=== PATIENT | male | born 1950 | race Caucasian/White ===

== ENCOUNTER 2018-05-15 03:09 | Emergency (ER) | payer OTHER ==
[2018-05-15] MEDS ORDERED: predniSONE 20 MG TABLET (UD) PO ONE (03:24)
--- NOTE | 2018-05-15 03:24 | PDOC ---
Attending Attestation - Resident Resident Name: Donal Jay - ED Attending Attestation I have performed the following: I have examined & evaluated the patient, The case was reviewed & discussed with the resident, I agree w/resident's findings & plan - HPI HPI: 05/15/18 03:24 Pt comes with a left sided bells palsy - Physicial Exam PE: 05/15/18 06:00 Agree with resident exam - Medical Decision Making 05/15/18 04:36 Patient Name: TIFFANY GAMBINO THIS IS A PRELIMINARY REPORT FROM [facility] DATE OF SERVICE: 2018-05-15 03:33:59 IMAGES: 170 EXAM: CT BRAIN WITHOUT INTRAVENOUS CONTRAST. HISTORY: Facial weakness. COMPARISON: None. FINDINGS: 1. There is no intracranial bleed, extra axial fluid collection, mass effect, midline shift, hydrocephalus, acute territorial infarct or depressed skull fracture evident. IMPRESSION: No acute intracranial abnormality demonstrated
[2018-05-15 03:26] VITALS: BP 168/86; PULSE 71; TEMP 97.7; BMI 29.3
--- NOTE | 2018-05-15 03:41 | PDOC ---
History of Present Illness - General Chief Complaint: Facial Droop Stated Complaint: FACIAL DROOP Time Seen by Provider: 05/15/18 03:24 - History of Present Illness Initial Comments: 05/15/18 03:32 67 yo M with h/o CAD/DC, HTN, who p/w left sided facial weakness. Patient reports 2 days of progressive left sided facial weakness, inability to close left sided eye, and left sided facial droop. No identifiable triggers or alleviators. Also endorses left sided ear pain, dull, not alleviated with H2O2. Patient denies taste disturbances, ALEXIS, vision change, tinnitus, hearing loss, N/ V, F,C, CP, SOB, urinary complaints, abdominal pain, diarrhea, constipation, lightheadedness, sensory changes. PMHx: as noted above. Denies h/o CVA/TIA. ROS: as noted SHx: Denies IVDA Allergies: NKDA Past History - Past Medical History Allergies/Adverse Reactions: Allergies Allergy/AdvReac Type Severity Reaction Status Date / Time No Known Allergies Allergy Verified 01/19/16 12:17 Home Medications: Ambulatory Orders Aspirin [Aspirin EC] 81 mg PO DAILY #0 tab.chew 07/02/11 Atorvastatin Ca [Lipitor] 10 mg PO HS #0 tablet 07/02/11 Metoprolol Tartrate [Lopressor -] 25 mg PO BID #0 tab 07/02/11 Meclizine HCl [Antivert -] 25 mg PO TID PRN #21 tablet 04/22/13 Ramipril 10 mg PO DAILY 01/19/16 Glipizide [Glucotrol -] 2.5 mg PO BID@0700,1630 #60 tablet 01/20/16 metFORMIN HCL [Glucophage -] 500 mg PO BID@0700,1630 #60 tablet 01/20/16 Eye Patch [Eye Pad] 1 each MC DAILY #1 pad 05/15/18 Prednisone [Deltasone] See Taper PO DAILY #16 tablet 05/15/18 Tetrahydrz/Dext 70/Peg 400/Pvp [Eye Drops] 15 ml OP TID #1 drops 05/15/18 Valacyclovir HCl [Valtrex -] 1,000 mg PO TID #21 tablet MDD 3 tab 05/15/18 Cardiac Disorders: Yes (DC) - Surgical History Cardiac Surgery: Yes (BYPASS) - Immunization History Immunization Up to Date: Yes - Suicide/Smoking/Psychosocial Hx Smoking Status: No Smoking History: Never smoked Have you smoked in the past 12 months: No Number of Cigarettes Smoked Daily: 40 If you are a former smoker, when did you quit?: 2009 Information on smoking cessation initiated: No Hx Alcohol Use: No Drug/Substance Use Hx: No Substance Use Type: None Hx Substance Use Treatment: No Review of Systems - Review of Systems Comments:: 05/15/18 03:42 GENERAL/CONSTITUTIONAL: No fever or chills. No weakness. HEAD, EYES, EARS, NOSE AND THROAT: + Left facial weakness. No change in vision. No ear pain or discharge. No sore throat. CARDIOVASCULAR: No chest pain or shortness of breath RESPIRATORY: No cough, wheezing, or hemoptysis. GASTROINTESTINAL: No nausea, vomiting, diarrhea or constipation. GENITOURINARY: No dysuria, frequency, or change in urination. MUSCULOSKELETAL: No joint or muscle swelling or pain. No neck or back pain. SKIN: No rash NEUROLOGIC:+ Left sided facial weakness. No headache, vertigo, loss of consciousness, or change in sensation. ENDOCRINE: No increased thirst. No abnormal weight change HEMATOLOGIC/LYMPHATIC: No anemia, easy bleeding, or history of blood clots. ALLERGIC/IMMUNOLOGIC: No hives or skin allergy. *Physical Exam - Vital Signs Last Vital Signs Temp Pulse Resp BP Pulse Ox 97.7 F 71 18 168/86 96 05/15/18 03:22 05/15/18 03:22 05/15/18 03:22 05/15/18 03:22 05/15/18 03:22 - Physical Exam Comments: 05/15/18 03:43 GENERAL: Awake, alert, and fully oriented, in no acute distress HEAD: No signs of trauma, normocephalic, atraumatic EYES: Absent left sided forehead wrinkling, inability to close left eyelid, drooping at angle of left sided mouth/lateral commisure. PERRLA, EOMI, sclera anicteric, conjunctiva clear ENT: Auricles normal inspection, hearing grossly normal, nares patent, oropharynx clear without exudates. Moist mucosa NECK: Normal ROM, supple, no lymphadenopathy, JVD, or masses LUNGS: No distress, speaks full sentences, clear to auscultation bilaterally HEART: Regular rate and rhythm, normal S1 and S2, no murmurs, rubs or gallops, peripheral pulses normal and equal bilaterally. EXTREMITIES : Normal inspection, Normal range of motion, no edema. No clubbing or cyanosis. NEUROLOGICAL: Absent left sided forehead wrinkling, inability to close left eyelid, drooping at angle of left sided mouth/lateral commisure. Cranial nerves II through XII grossly intact. Normal speech, normal gait, no focal sensorimotor deficits SKIN: Warm, Dry, normal turgor, no rashes or lesions noted Moderate Sedation - Procedure Monitoring Vital Signs: Procedure Monitoring Vital Signs Temperature 97.7 F 05/15/18 03:22 Pulse Rate 71 05/15/18 03:22 Respiratory Rate 18 05/15/18 03:22 Blood Pressure 168/86 05/15/18 03:22 O2 Sat by Pulse Oximetry (%) 96 05/15/18 03:22 ED Treatment Course - RADIOLOGY Radiology Studies Ordered: Category Date Time Status HEAD CT WITHOUT CONTRAST [CT] Stat CT Scan 05/15/18 03:31 Ordered - Medications Given in the ED: ED Medications Discontinued Medications Generic Name Dose Route Start Last Admin Trade Name Freq PRN Reason Stop Dose Admin Prednisone 60 mg 05/15/18 03:24 05/15/18 03:56 Deltasone - PO 05/15/18 03:25 60 mg ONCE ONE Administration Medical Decision Making - Medical Decision Making 05/15/18 03:35 67 yo M with h/o CAD/DC, HTN, who p/w left sided facial weakness. BP 168/86, vitals otherwise wnl, AF, A&Ox3. Absent left sided forehead wrinkling, inability to close left eyelid, drooping at angle of left sided mouth/lateral commisure. Symptoms likely 2/2 bells palsy. No other focal or neuro deficits to suggest CVA/TIA. Differential also includes Rishabh wing, trigeminal neuralgia, tick paralysis. Will provide symptom management, CTH imaging, and reassess. ED Course: Prednisone, Valacyclovir, eye drops, sent to pharmacy Patient understands prognosis and need to f/u with optho, and neurology. 05/15/18 03:59 CTH: Unremarkable Patient stable for d/c with return precautions. 05/15/18 03:59 *DC/Admit/Observation/Transfer Diagnosis at time of Disposition: Left-sided Pascal's palsy - Discharge Dispostion Disposition: HOME Condition at time of disposition: Stable Decision to Admit order: No - Prescriptions Prescriptions: Eye Patch [Eye Pad] 1 each MC DAILY #1 pad Prednisone [Deltasone] See Taper PO DAILY #16 tablet Tetrahydrz/Dext 70/Peg 400/Pvp [Eye Drops] 15 ml OP TID #1 drops Valacyclovir HCl [Valtrex -] 1,000 mg PO TID #21 tablet MDD 3 tab - Referrals Referrals: Jaime Salamanca PA [Primary Care Provider] - Edinson Sanchez MD [Staff Physician] - Godwin Grimm MD [Staff Physician] - - Patient Instructions Printed Discharge Instructions: DI for Pascal's Palsy Additional Instructions: Please return to the emergency department with any new or worsening symptoms or concerns. Please follow up with your primary care physician within 72 hours. Please take prednisone, valacylovir, eye drops as prescribed. Please follow up with neurology and ophthalmology within 72 hours. - Post Discharge Activity - Attestations Physician Attestion: 05/15/18 03:46 I attest to the information provided in this note. NIH Stroke Scale - Last Known Well Date/Time & Onset Date Last Known Well: 05/13/18 Time Last Known Well: 09:00 - Initial Evaluation Level of consciousness: Alert Ask patient the month and their age: Answers both correctly Ask patient to open & close eyes; make fist and let go: Obeys both correctly Best gaze (horizontal eye movement): Normal Visual field testing: No visual field loss Facial paresis (Show teeth/raise eyebrows/close eyes tight): Complete paralysis of one or both sides (Upper and lower face) Motor Function: Left Arm: Normal Motor Function: Right Arm: Normal (extends arm 90 (or 45) degrees for 10 seconds without drift Motor Function: Left Leg: Normal (extends leg 30 degrees for 5 seconds without drift) Motor Function: Right Leg: Normal (extends leg 30 degrees for 5 seconds without drift) Limb Ataxia: No ataxia Sensory(Use pinprick test arms,legs,trunk,face/side to side): Normal Best language (Describe picture, name items, read sentences): No Aphasia Dysarthria (read several words): Normal articulation Extinction and Inattention: No abnormality - Total Score NIH Stroke Scale Score: 3 tPA Exclusion checklist 3-4.5h - Time Elapsed Date last known well: 05/13/18 Time last known well: 09:00 Elaspsed time: 1 Day(s) and 18 Hour(s) and 59 Minutes - Thrombolytic Therapy Candidate Is patient eligible for thrombolytic therapy: No - Exclusion Criteria 3-4.5 hr SBP greater than 185 or DBP greater than 110mmHg despite tx: No Recent IC/spinal surgery,head trauma or stroke<3mos.: No Hx IC hemorrhage, IC neoplasm, AV malformation or aneurysm: No Active internal bleeding: No Blding diathesis(low plt ct, inc PTT,INR>1.7 or use of NOAC): No Symptoms suggest subarachnoid hemorrhage: No CT demonstrates multilobar infarct(>1/3 cerebral hemiphere): No Arterial puncture at noncompressible site in previous 7 days: No Blood glucose concentration less than 50mg/dL (2.7mmol/L): No - Relative Exclusion Criteria 3-4.5 hr Life expectancy <1 yr or severe co-morbid illness: No : No Patient/family refused: No Rapid improvement: No Stroke severity too mild: Yes Recent acute DC (w/in previous 3 months): No Seizure at onset with postictal residual neuro impairments: No Major surgery or serious trauma w/in previous 14 days: No Recent GI or hemorrhage (w/in previous 21 days): No - Add'l Relative Exclusion 3-4.5 hr Age > 80: No Hx of both diabetes AND prior ischemic stroke: No Taking an oral anticoagulant regardless of INR: No NIHSS >25: No - Ineligibility reason(s) Reasons No tPA given: Outside of window - delayed arrival, See reason(s) noted above
[2018-05-15] MEDS ORDERED: predniSONE 20 MG TABLET (UD) ONE (03:57)
== END 2018-05-15 04:40 | disposition home or self-care (01) ==
LOC: JER 03:09
DX: G51.0 Bell's palsy (principal); I25.10 Atherosclerotic heart disease of native coronary artery without angina pectoris; I10 Essential (primary) hypertension; Z95.1 Presence of aortocoronary bypass graft; I25.2 Old myocardial infarction
CPT/HCPCS: 70450-TC; 99283-25

== ENCOUNTER 2018-06-05 03:59 | Emergency (ER) | payer OTHER ==
[2018-06-05] MEDS ORDERED: RAMIPRIL 5 MG CAPSULE (FP) PO ONE (04:14)
[2018-06-05] MEDS ORDERED: metoPROLOL SUCCINATE 25 MG TAB.SR.24H (FP) PO ONE (04:14)
[2018-06-05] MEDS ORDERED: ATORVASTATIN CA 10 MG TABLET (FP) PO ONE (04:15)
[2018-06-05] MEDS ORDERED: glipiZIDE-XL 2.5 MG TAB.ER.24 PO ONE (04:15)
[2018-06-05] MEDS ORDERED: metFORMIN HCL 500 MG TABLET (FP) PO ONE (04:15)
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
[2018-06-05] MEDS ORDERED: METOPROLOL TARTRATE 25 MG TABLET (FP) ONE (04:20)
[2018-06-05] MEDS ORDERED: metFORMIN HCL 500 MG TABLET (FP) ONE (04:20)
[2018-06-05] MEDS ORDERED: glipiZIDE 5 MG TABLET (FP) ONE (04:20)
[2018-06-05 04:21] VITALS: BP 139/92; PULSE 99; TEMP 98; BMI 29.5
[2018-06-05] MEDS ORDERED: ATORVASTATIN CA 10 MG TABLET (FP) ONE (04:21)
[2018-06-05] MEDS ORDERED: RAMIPRIL 5 MG CAPSULE (FP) ONE (04:21)
--- NOTE | 2018-06-05 10:35 | EKG ---
Test Reason : Blood Pressure : / mmHG Vent. Rate : 096 BPM Atrial Rate : 096 BPM P-R Int : 144 ms QRS Dur : 102 ms QT Int : 342 ms P-R-T Axes : 029 -09 049 degrees QTc Int : 432 ms NORMAL SINUS RHYTHM POSSIBLE LEFT ATRIAL ENLARGEMENT BORDERLINE ECG WHEN COMPARED WITH ECG OF 19-JAN-2016 15:14, NO SIGNIFICANT CHANGE WAS FOUND Confirmed by RICCI VELÁZQUEZ MD ([id number]) on 06/05/2018 10:34:57 AM Referred By: Confirmed By:RICCI VELÁZQUEZ MD
== END 2018-06-05 05:05 | disposition home or self-care (01) ==
LOC: JER 03:59
DX: Z04.1 Encounter for examination and observation following transport accident (principal); V47.5XXA Car driver injured in collision with fixed or stationary object in traffic accident, initial encounter; Y92.414 Local residential or business street as the place of occurrence of the external cause; Y93.89 Activity, other specified; Y99.8 Other external cause status; I25.810 Atherosclerosis of coronary artery bypass graft(s) without angina pectoris; I10 Essential (primary) hypertension; I25.2 Old myocardial infarction; E11.9 Type 2 diabetes mellitus without complications; Z79.84 Long term (current) use of oral hypoglycemic drugs; E78.5 Hyperlipidemia, unspecified
CPT/HCPCS: 93005; 93010; 99282-25

== ENCOUNTER 2021-05-09 00:26 | Emergency (ER) | payer OTHER ==
[2021-05-09 00:35] VITALS: TEMP 98.8; BMI 26.6
[2021-05-09] MEDS ORDERED: ACETAMINOPHEN 500 MG TABLET (FP) PO ONE (01:24)
[2021-05-09 01:48] LABS: BASO % 0.6 % (0-2.0); EOS % 0.6 % (0-4.5); HEMATOCRIT 44.6 % (35.4-49); HEMOGLOBIN 15.4 GM/dL (11.7-16.9); LYMPH % 9.2 % (8-40); MCH 29.3 pg (25.7-33.7); MCHC 34.6 g/dl (32.0-35.9); MEAN CELL VOLUME 84.6 fl (80-96); MEAN PLT VOLUME 8.9 fl (7.5-11.1); MONO % 4.7 % (3.8-10.2); NEUT % 84.9 % (42.8-82.8); PLATELET COUNT 138 10^3/uL (134-434); RBC 5.27 M/mm3 (4.00-5.60); RDW 14.7 % (11.9-15.9); WHITE BLOOD COUNT 9.4 K/mm3 (4.0-10.0)
[2021-05-09] MEDS ORDERED: ACETAMINOPHEN 325 MG TABLET (FP) ONE (01:56)
[2021-05-09 02:07] LABS: CHLORIDE 109 mmol/L (98-107); SODIUM 142 mmol/L (136-145)
[2021-05-09 02:09] LABS: CALCIUM 8.9 mg/dL (8.5-10.1)
[2021-05-09 02:10] LABS: ANION GAP 5 MMOL/L (8-16); BLOOD UREA NITROGEN 13.8 mg/dL (7-18); CO2 28 mmol/L (21-32); GLUCOSE,RANDOM 175 mg/dL (74-106)
[2021-05-09 02:12] LABS: CREATININE 0.8 mg/dL (0.55-1.3); SGOT/AST 21 U/L (15-37); SGPT/ALT 32 U/L (13-61)
[2021-05-09 02:15] LABS: BILIRUBIN,TOTAL 0.8 mg/dL (0.2-1); TOT PROT 7.3 g/dl (6.4-8.2)
[2021-05-09 02:16] LABS: ALK PHOS 50 U/L (45-117)
[2021-05-09 02:38] LABS: INR 1.19 (0.83-1.09); PROTHROMBIN TIME (PATIENT) 13.7 SEC (9.7-13.0)
[2021-05-09] MEDS ORDERED: ONDANSETRON 4 MG/2 ML VIAL ONE (03:25)
[2021-05-09] MEDS ORDERED: ONDANSETRON 4 MG/2 ML VIAL IVPB ONE (03:28)
[2021-05-09] MEDS ORDERED: NICARDIPINE 25 MG in DEXTROSE 5%-WATER - 240 ML IVPB SCH (03:30)
[2021-05-09] MEDS ORDERED: niCARdipine HCL 25 MG/10 ML AMPUL IVPB ONE (03:44)
[2021-05-09 04:33] VITALS: BP 157/109; PULSE 117
[2021-05-09] MEDS ORDERED: METOCLOPRAMIDE HCL INJECTION 10 MG/2 ML VIAL IVPUSH ONE (04:40)
[2021-05-09] MEDS ORDERED: METOCLOPRAMIDE HCL INJECTION 10 MG/2 ML VIAL ONE (04:41)
[2021-05-09] MEDS ORDERED: morphine SULFATE 4 MG/ML VIAL ONE (05:07)
[2021-05-09] MEDS ORDERED: morphine CARPU-JECT 2 MG/1 ML DISP.SYRIN IVPUSH ONE (05:14)
[2021-05-09 17:29] LABS: MAGNESIUM 1.6 mg/dL (1.8-2.4)
== END 2021-05-09 05:26 | disposition short-term general hospital (02) ==
LOC: JER 00:26
PROC: 3E033GC Introduction of Other Therapeutic Substance into Peripheral Vein, Percutaneous Approach (ICD-10-PCS; principal; 2021-05-09)
PROC: 3E033NZ Introduction of Analgesics, Hypnotics, Sedatives into Peripheral Vein, Percutaneous Approach (ICD-10-PCS; 2021-05-09)
PROC: 3E033GC Introduction of Other Therapeutic Substance into Peripheral Vein, Percutaneous Approach (ICD-10-PCS; 2021-05-09)
PROC: 3E033GC Introduction of Other Therapeutic Substance into Peripheral Vein, Percutaneous Approach (ICD-10-PCS; 2021-05-09)
DX: S06.6X0A Traumatic subarachnoid hemorrhage without loss of consciousness, initial encounter (principal); R55 Syncope and collapse; W19.XXXA Unspecified fall, initial encounter
CPT/HCPCS: 36415; 70450-TC; 70496-TC; 70498-TC; 71045-TC-FY; 72125-TC; 80053; 80307; 82550; 83735; 84484; 85025; 85610; 93005; 93010; 96374; 96375; 99285-25; C9803; Q9967; U0003; U0005

== ENCOUNTER 2021-12-03 15:50 | Inpatient (IN) | payer OTHER ==
[2021-12-03] MEDS ORDERED: MECLIZINE HCL 25 MG TABLET (FP) PO ONE (18:17)
[2021-12-03] MEDS ORDERED: MECLIZINE HCL 25 MG TABLET (FP) ONE (18:46)
[2021-12-03 19:06] LABS: HEMATOCRIT 45.3 % (35.4-49); HEMOGLOBIN 15.4 GM/dL (11.7-16.9); MCH 28.6 pg (25.7-33.7); MEAN CELL VOLUME 84.1 fl (80-96); MEAN PLT VOLUME 8.9 fl (7.5-11.1); PLATELET COUNT 174 10^3/uL (134-434); RBC 5.38 M/mm3 (4.00-5.60); RDW 15.7 % (11.9-15.9); WHITE BLOOD COUNT 6.1 K/mm3 (4.0-10.0)
[2021-12-03 19:15] LABS: INR 1.11 (0.83-1.09); PROTHROMBIN TIME (PATIENT) 12.8 SEC (9.7-13.0)
[2021-12-03 19:40] LABS: CALCIUM 9.3 mg/dL (8.5-10.1)
[2021-12-03 19:41] LABS: ALBUMIN 4.1 g/dl (3.4-5.0); BLOOD UREA NITROGEN 17.9 mg/dL (7-18)
[2021-12-03 19:42] LABS: MAGNESIUM 2.1 mg/dL (1.8-2.4)
[2021-12-03 19:44] LABS: BILIRUBIN,TOTAL 0.6 mg/dL (0.2-1); CREATININE 0.9 mg/dL (0.55-1.3); TOT PROT 7.2 g/dl (6.4-8.2)
[2021-12-04 01:37] LABS: URINE APPEARANCE CLOUDY; URINE BILIRUBIN NEGATIVE (NEGATIVE); URINE COLOR YELLOW; URINE GLUCOSE (UA) 2+ (NEGATIVE); URINE KETONE NEGATIVE (NEGATIVE); URINE LEUK ESTERASE NEGATIVE (NEGATIVE); URINE NITRITE NEGATIVE (NEGATIVE); URINE PROTEIN NEGATIVE (NEGATIVE)
[2021-12-04] MEDS: ACETAMINOPHEN 325 MG TABLET (FP) PO PRN ×2 (02:23→12:57)
[2021-12-04 03:13] VITALS: RESP 20; BMI 25.2
[2021-12-04] MEDS: INSULIN SLIDING SCALE (NOVOLOG) 1 VIAL SQ SCH ×4 (06:55→23:17)
[2021-12-04 09:24] LABS: BASO % 0.6 % (0-2.0); EOS % 2.2 % (0-4.5); HEMATOCRIT 46.7 % (35.4-49); HEMOGLOBIN 15.8 GM/dL (11.7-16.9); LYMPH % 22.5 % (8-40); MCH 28.5 pg (25.7-33.7); MCHC 33.7 g/dl (32.0-35.9); MEAN CELL VOLUME 84.4 fl (80-96); MONO % 7.9 % (3.8-10.2); NEUT % 66.8 % (42.8-82.8); PLATELET COUNT 178 10^3/uL (134-434); RBC 5.53 M/mm3 (4.00-5.60); RDW 15.7 % (11.9-15.9)
[2021-12-04 10:05] LABS: ALBUMIN 3.9 g/dl (3.4-5.0); BLOOD UREA NITROGEN 15.5 mg/dL (7-18)
[2021-12-04 10:06] LABS: BILIRUBIN,TOTAL 0.8 mg/dL (0.2-1); CREATININE 0.8 mg/dL (0.55-1.3)
[2021-12-04] MEDS: RAMIPRIL 5 MG CAPSULE PO SCH (11:12)
[2021-12-04] MEDS ORDERED: ATORVASTATIN CA 20 MG TABLET (FP) PO SCH (22:00)
[2021-12-04] MEDS ORDERED: INSULIN (NOVOLOG) ASPART 100 UNITS/ML 10ML VIAL ONE (22:05)
[2021-12-05] MEDS: INSULIN SLIDING SCALE (NOVOLOG) 1 VIAL SQ SCH (06:24)
[2021-12-05] MEDS: ACETAMINOPHEN 325 MG TABLET (FP) PO PRN (06:29)
[2021-12-05 07:52] VITALS: BP 124/70; PULSE 79; TEMP 97.6
[2021-12-05] MEDS ORDERED: levETIRAcetam 500 MG TABLET (FP) PO ONE (08:55)
[2021-12-05] MEDS: RAMIPRIL 5 MG CAPSULE PO SCH (09:16)
[2021-12-05] MEDS ORDERED: FENOFIBRIC ACID 135 MG CAP PO SCH (10:00)
[2021-12-05 10:45] LABS: BASO % 0.7 % (0-2.0); EOS % 2.7 % (0-4.5); HEMATOCRIT 48.7 % (35.4-49); HEMOGLOBIN 16.2 GM/dL (11.7-16.9); MCH 28.5 pg (25.7-33.7); MCHC 33.2 g/dl (32.0-35.9); MEAN CELL VOLUME 85.8 fl (80-96); MEAN PLT VOLUME 8.9 fl (7.5-11.1); MONO % 9.5 % (3.8-10.2); NEUT % 61.1 % (42.8-82.8); PLATELET COUNT 177 10^3/uL (134-434); RBC 5.68 M/mm3 (4.00-5.60); RDW 15.6 % (11.9-15.9); WHITE BLOOD COUNT 6.4 K/mm3 (4.0-10.0)
[2021-12-05 11:10] LABS: ALBUMIN 4.4 g/dl (3.4-5.0); BLOOD UREA NITROGEN 15.4 mg/dL (7-18); CALCIUM 9.4 mg/dL (8.5-10.1); MAGNESIUM 2.1 mg/dL (1.8-2.4)
[2021-12-05 11:13] LABS: CREATININE 0.8 mg/dL (0.55-1.3)
[2021-12-05 11:15] LABS: BILIRUBIN,TOTAL 0.9 mg/dL (0.2-1); TOT PROT 7.5 g/dl (6.4-8.2)
[2021-12-05] MEDS ORDERED: levETIRAcetam 500 MG TABLET (FP) PO SCH (22:00)
== END 2021-12-05 09:59 | disposition home or self-care (01) | DRG 93 ==
LOC: JER 15:50 → JERBED 22:08 → J8W 12-04 01:46
PROVIDERS: ADMIT Internal Medicine; ATTEND Nurse Practitioner Family
DX: R27.0 Ataxia, unspecified (principal); I10 Essential (primary) hypertension; E78.5 Hyperlipidemia, unspecified; E11.9 Type 2 diabetes mellitus without complications; I25.2 Old myocardial infarction; Z95.1 Presence of aortocoronary bypass graft; R27.8 Other lack of coordination; Z79.84 Long term (current) use of oral hypoglycemic drugs
CPT/HCPCS: 36415; 70450-TC; 70551-TC; 71046-TC-FY; 80053; 80061; 81003; 82550; 82962; 83036; 83735; 84484; 85025; 85027; 85610; 86850; 86900; 86901; 87086; 93005; 93010; 97116-GP; 97162-GP; 99285-25; C9803-CS; U0003; U0005

== ENCOUNTER 2022-05-05 10:20 | Emergency (ER) | payer OTHER ==
[2022-05-05 10:32] VITALS: BP 144/77; PULSE 86; RESP 18; TEMP 97.2; BMI 26.7
== END 2022-05-05 11:46 | disposition home or self-care (01) ==
LOC: JER 10:20 → JERFT 10:20
DX: H11.32 Conjunctival hemorrhage, left eye (principal)
CPT/HCPCS: 99281-25

== ENCOUNTER 2023-08-08 10:43 | Emergency (ER) | payer OTHER ==
[2023-08-08 11:00] VITALS: RESP 17; TEMP 98.2; BMI 27.3
[2023-08-08] MEDS ORDERED: KETOROLAC TROMETHAMINE 30 MG/1 ML VIAL ONE (11:35)
[2023-08-08] MEDS: KETOROLAC TROMETHAMINE 60 MG/2 ML VIAL IM ONE (11:36)
[2023-08-08] MEDS ORDERED: AMOX TR/POT CLAV 875MG/125MG TABLETS (FP) ONE (11:41)
[2023-08-08] MEDS: AMOX TR/POT CLAV 875MG/125MG TABLETS (FP) PO ONE (11:42)
[2023-08-08 12:08] VITALS: BP 179/96; PULSE 98
== END 2023-08-08 12:11 | disposition home or self-care (01) ==
LOC: JER 10:43
PROC: 3E023GC Introduction of Other Therapeutic Substance into Muscle, Percutaneous Approach (ICD-10-PCS; principal; 2023-08-08)
DX: K04.7 Periapical abscess without sinus (principal); R00.0 Tachycardia, unspecified
CPT/HCPCS: 96372; 99284-25

== ENCOUNTER 2023-10-26 00:49 | Emergency (ER) | payer OTHER ==
[2023-10-26 01:01] VITALS: BP 170/91; PULSE 98; RESP 18; TEMP 97.7; BMI 27.7
[2023-10-26] MEDS: NEOMYCIN/POLYMYXN/HC OTIC SUSPENSION 10 ML BOTTLE AD ONE (01:57)
== END 2023-10-26 01:57 | disposition home or self-care (01) ==
LOC: JER 00:49
DX: H60.391 Other infective otitis externa, right ear (principal); H92.01 Otalgia, right ear
CPT/HCPCS: 99283-25